=== PATIENT | male | born 1945 | race Caucasian/White ===

== ENCOUNTER 2017-10-13 19:26 | Inpatient (IN) | payer BC, MEDICARE ==
[~2017-10-13] VITALS: Ht 170.2 cm; Wt 65.2 kg
[2017-10-13] MEDS ORDERED: UNK HTN MED PO (19:51)
[2017-10-13] MEDS ORDERED: LEVO25TA4 PO (19:51)
[2017-10-13] MEDS ORDERED: MECLIZINE CHEWABLE 25 MG TAB ONE (20:09)
[2017-10-13] MEDS ORDERED: ONDANSETRON 2MG/ML, 2ML ONE (20:09)
[2017-10-13] MEDS ORDERED: SODIUM CHLORIDE FLUSH 10ML SYR IVF ONE (20:30)
[2017-10-13] MEDS ORDERED: ONDANSETRON 2MG/ML, 2ML IVPush ONE (20:30)
[2017-10-13] MEDS ORDERED: SODIUM CHLORIDE 0.9% 1,000ML IVBOLUS ONE (20:30)
[2017-10-13] MEDS ORDERED: MECLIZINE CHEWABLE 25 MG TAB PO ONE (20:30)
[2017-10-13 20:38] LABS: HEMATOCRIT 43.1 % (39.2-51.8); HEMOGLOBIN 14.4 g/dL (13.7-18.0); WHITE BLOOD COUNT 9.8 x10^3/uL (3.4-10)
[2017-10-13 20:46] LABS: ASPARTATE AMINO TRANSFERASE 18 U/L (15-37); BLOOD UREA NITROGEN 20 mg/dL (7-18)
[2017-10-13 20:55] LABS: IS PT STATUS REG ER OR PRE ER? YES
[2017-10-13] MEDS ORDERED: LORazepam 2 MG/ML, 1ML IVPush ONE (22:00)
[2017-10-13] MEDS ORDERED: LORazepam 2 MG/ML, 1ML ONE (22:08)
[2017-10-13] MEDS ORDERED: BISACODYL 10 MG SUPP PR PRN (22:30)
[2017-10-13] MEDS ORDERED: POLYETHYLENE GLYCOL 17 GM PACKET PO PRN (22:30)
[2017-10-13] MEDS ORDERED: ACETAMINOPHEN 325 MG TABLET PO PRN (22:30)
[2017-10-13] MEDS ORDERED: ONDANSETRON 2MG/ML, 2ML IVPush PRN (22:30)
[2017-10-13 23:28] VITALS: BP 145/74
[2017-10-14] MEDS: HEPARIN 5,000 UNITS/ML, 1ML SQ SCH ×3 (00:13→16:00)
[2017-10-14] MEDS: SODIUM CHLORIDE 0.9% 1,000 ML IV SCH ×2 (00:13→08:22)
[2017-10-14 02:11] VITALS: BP 146/79
[2017-10-14 03:22] VITALS: BP 143/83
[2017-10-14 06:02] LABS: HEMATOCRIT 42.7 % (39.2-51.8); HEMOGLOBIN 14.5 g/dL (13.7-18.0); WHITE BLOOD COUNT 8.3 x10^3/uL (3.4-10)
[2017-10-14 06:28] LABS: ASPARTATE AMINO TRANSFERASE 18 U/L (15-37); BLOOD UREA NITROGEN 18 mg/dL (7-18); IS PT STATUS REG ER OR PRE ER? NO
[2017-10-14 07:52] VITALS: BP_SYST 152; BP_SYST 155; BP_SYST 161; BP_DIAS 89; BP_DIAS 90; BP_DIAS 94
[2017-10-14] MEDS ORDERED: SENNA/DOCUSATE TABLET PO SCH (09:00)
[2017-10-14] MEDS ORDERED: LOSARTAN 50MG TABLET PO SCH (09:00)
[2017-10-14] MEDS ORDERED: LEVOTHYROXINE 25 MCG TABLET PO SCH (09:00)
[2017-10-14 11:27] LABS: IS PT STATUS REG ER OR PRE ER? NO
[2017-10-14 16:49] VITALS: BP 151/85
[2017-10-14] MEDS ORDERED: LOSA50TA2 PO (16:58)
[2017-10-14] MEDS ORDERED: CYAN250013 PO (17:03)
== END 2017-10-14 17:24 | disposition home or self-care (01) | DRG 74 ==
LOC: ED 22:18 → EDIP 22:22 → 5SO 22:44
PROVIDERS: ADMIT Hospitalist; ATTEND Hospitalist
DX: G90.8 Other disorders of autonomic nervous system (principal); E87.2 Acidosis; D75.89 Other specified diseases of blood and blood-forming organs; I27.20 Pulmonary hypertension, unspecified; G89.29 Other chronic pain; M54.9 Dorsalgia, unspecified; M48.00 Spinal stenosis, site unspecified; I10 Essential (primary) hypertension; E03.9 Hypothyroidism, unspecified; E53.8 Deficiency of other specified B group vitamins; F12.90 Cannabis use, unspecified, uncomplicated
CPT/HCPCS: 36415; 70450; 80053; 82607; 82746; 83605; 84484; 85025; 93005; 93306; 93880; 96374; J1644; J2405; J7030